=== PATIENT | male | born 1950 | race Caucasian/White ===

== ENCOUNTER 2022-12-27 11:01 | Emergency (ER) | payer OTHER ==
[2022-12-27 11:06] VITALS: BP 162/100; PULSE 84; RESP 16; TEMP 98.1; BMI 26.6
[2022-12-27] MEDS ORDERED: ACETAMINOPHEN 500 MG TABLET (FP) PO ONE (12:03)
[2022-12-27] MEDS ORDERED: ACETAMINOPHEN 500 MG TABLET (FP) ONE (12:16)
== END 2022-12-27 14:24 | disposition home or self-care (01) ==
LOC: JERFT 11:01
DX: M25.562 Pain in left knee (principal); R22.42 Localized swelling, mass and lump, left lower limb; M71.22 Synovial cyst of popliteal space [Baker], left knee
CPT/HCPCS: 73564-TC-LT-FY; 93971-TC; 99284-25